=== PATIENT | male | born 1975 | race Two or more races ===

== ENCOUNTER 2018-09-25 01:07 | Emergency (ER) | payer SELFPAY ==
[~2018-09-25] VITALS: Ht 188 cm; Wt 81.6 kg
[2018-09-25 01:15] VITALS: BP 125/81
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
--- NOTE | 2018-09-25 01:44 | Emergency Room Report ---
History of Present Illness General Chief Complaint: Medical Clearance Source: Patient, Law Enforcement Present Illness HPI Patient presents with a abrasion to the right forehead. He says he fell. According to the silk screen printer helper Department he had to taken down to the ground. There is no loss of consciousness according to the patient and also to the silk screen printer helper. Patient states his tetanus is up-to-date. Denies any nausea or vomiting. No other joint pain. In addition to that the patient complains about testicular problems. Several months ago apparently his left testicle was the size of a softball. He sought medical treatment and now it's better. Initially complaining about pain however when he understood that he was going to be examined he declined pain. Patient denies any dysuria or hematuria. Allergies: Coded Allergies: No Known Allergies (Unverified , 09/25/18) Patient History Past Medical History: see triage record Social History: Reports: smoking, alcohol use, drug use Social History Narrative in [employer] custody Reviewed Nursing Documentation: PMH: Agreed; PSxH: Agreed Nursing Documentation-PMH Past Medical History: No History, Except For Hx Neurological Problems: Yes - adhd, bipolar, depression Review of Systems All Other Systems: negative except mentioned in HPI Physical Exam Vital Signs Date Time Temp Pulse Resp B/P (MAP) Pulse Ox O2 Delivery O2 Flow Rate FiO2 09/25/18 01:09 98.4 88 16 126/80 97 Room Air Sp02 EP Interpretation: reviewed, normal General Appearance: well appearing, no apparent distress, alert Head: normocephalic, other - Abrasion right forehead Eyes: bilateral eye normal inspection, bilateral eye PERRL, bilateral eye EOMI ENT: hearing grossly normal, normal voice, moist mucus membranes Neck: full range of motion, supple Respiratory: lungs clear, normal breath sounds, no respiratory distress, speaking full sentences Cardiovascular #1: regular rate, rhythm, no edema Cardiovascular #2: 2+ radial (R) Gastrointestinal: normal inspection, non tender, scaphoid Genitourinary: other - Refuses exam Musculoskeletal: no calf tenderness Neurologic: alert, 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 There is no loss of consciousness and the neurologic exam is normal at this time. No imaging is indicated. Patient claims his tetanus is up-to-date. The wound will be treated. The patient's declining any pain medication at this time. The secondary problem of this testicular pain and swelling will not be evaluated as the patient's refusing to be examined. No medical emergency at this time. Patient stable for outpatient observation and treatment. Last Vital Signs Date Time Temp Pulse Resp B/P (MAP) Pulse Ox O2 Delivery O2 Flow Rate FiO2 09/25/18 01:49 98.2 86 16 123/82 97 Room Air Status: improved Disposition: D/C TO [facility] IN [facility] Condition: Stable Scripts Bacitracin (Bacitracin) 28.4 Gm Oint...g. 1 APPLIC TOPIC BID, #10 GM Prov: Steve Salas MD 09/25/18 Steve Salas MD Sep 25, 2018 01:44
[2018-09-25] MEDS ORDERED: BACITRACIN15 GM TOPIC (01:46)
--- NOTE | 2018-09-25 01:48 | NUR ---
ER DISCHARGE NOTE: Patient is cleared to be discharged per Dr. Salas. Pt has cleared from medical side. D/C paper was signed by ELLIS/Rufino, [id number] Bacitracin ointment applied to the injuried site of right forehead. Pt is aox4 on room air with stable vital signs. Pt was given dc and prescription instructions, pt was able to verbalize understanding. Pt's ID band removed. Pt is able to ambulate with steady gait and took all belongings.
[2018-09-25 01:49] VITALS: BP 123/82
[2018-09-25] MEDS ORDERED: Bacitracin Oint UD TOPIC ONE (02:00)
== END 2018-09-25 01:49 ==
LOC: EMR 01:37
DX: S00.81XA Abrasion of other part of head, initial encounter (principal); S09.90XA Unspecified injury of head, initial encounter; F17.200 Nicotine dependence, unspecified, uncomplicated; F31.9 Bipolar disorder, unspecified; F32.9 Major depressive disorder, single episode, unspecified; F90.9 Attention-deficit hyperactivity disorder, unspecified type; W19.XXXA Unspecified fall, initial encounter; Y92.9 Unspecified place or not applicable
CPT/HCPCS: 99282